=== PATIENT | male | born 1995 | race Caucasian/White ===

== ENCOUNTER → 2024-12-09 | Emergency (ER) | payer MEDICAID, OTHER ==
[~2024-12-09] VITALS: Ht 182.9 cm; Wt 93.0 kg
[2024-12-09 14:44] VITALS: TEMP 98
[2024-12-09 18:34] VITALS: BP 140/77; O2SAT 98
== END | disposition home or self-care (01) ==
LOC: ER 14:33
DX: M54.2 Cervicalgia (principal); Z88.0 Allergy status to penicillin; Z88.1 Allergy status to other antibiotic agents; V43.52XA Car driver injured in collision with other type car in traffic accident, initial encounter; Y93.89 Activity, other specified; Y92.488 Other paved roadways as the place of occurrence of the external cause; Y99.8 Other external cause status